=== PATIENT | male | born 1955 | race Caucasian/White ===

== ENCOUNTER 2019-04-09 04:33 | Inpatient (IN) | payer MEDICARE, OTHER, MEDICAID ==
[2019-04-09 04:54] LABS: URINE BLOOD (Dip) POC 3+ (NEGATIVE); URINE GLUCOSE (Dip) POC Negative (NEGATIVE); URINE KETONES (Dip) POC Trace (NEGATIVE); URINE LEUKOCYTE EST (Dip) POC Negative (NEGATIVE); URINE NITRITE (Dip) POC Negative (NEGATIVE); URINE TOTAL PROTEIN POC 1+ (NEGATIVE)
[2019-04-09 05:09] LABS: ADD MAN DIFF? NO
[2019-04-09] MEDS: SODIUM CHLORIDE 0.9% 1L BAG IV* (05:09)
[2019-04-09 05:13] LABS: ABNORMAL IP MESSAGE 1; BASOPHIL # 0.1 10^3/ul (0.0-0.1); BASOPHILS % 0.3 % (0.0-2.0); HEMATOCRIT 45.2 % (42.0-52.0); HEMOGLOBIN 15.7 g/dl (14.0-18.0); LYMPHOCYTES # 1.8 10^3/ul (0.8-2.9); MEAN CORPUSCULAR HEMOGLOBIN 32.5 pg (29.0-33.0); MEAN CORPUSCULAR HGB CONC 34.7 g/dl (32.0-37.0); MEAN CORPUSCULAR VOLUME 93.6 fl (82.0-101.0); MONOCYTE # 2.8 10^3/ul (0.3-0.9); MONOCYTES % 12.7 % (0.0-11.0); NEUTROPHIL # 17.1 10^3/ul (1.6-7.5); NEUTROPHILS % 78.1 % (39.0-77.0); PLATELET COUNT 155 10^3/UL (140-415); POSITIVE DIFF @See below; RED BLOOD COUNT 4.83 10^6/ul (4.70-6.10); RED CELL DISTRIBUTION WIDTH 12.6 % (11.5-14.5)
[2019-04-09 05:13] LABS: WHITE BLOOD COUNT 21.8 10^3/ul (4.8-10.8)
[2019-04-09] MEDS: PIPER-TAZO 3.375 GM IV (PMX) 100 ML IVPB (05:13)
[2019-04-09 05:28] LABS: ALANINE AMINOTRANSFERASE 37 IU/L (13-69); ALBUMIN 5.7 g/dl (3.3-4.9); ALBUMIN/GLOBULIN RATIO 1.78; ALKALINE PHOSPHATASE 69 IU/L (42-121); ANION GAP 28 (5-13); ASPARTATE AMINO TRANSFERASE 115 IU/L (15-46); BILIRUBIN,INDIRECT 0.9 mg/dl (0-1.1); BILIRUBIN,TOTAL 0.9 mg/dl (0.2-1.3); BLOOD UREA NITROGEN 72 mg/dl (7-20); CALCIUM 10.3 mg/dl (8.4-10.2); CARBON DIOXIDE 12 mmol/L (21-31); CHLORIDE 104 mmol/L (97-110); CREATININE 4.86 mg/dl (0.61-1.24); Estimated GFR 12 mL/min (>60); GLUCOSE 99 mg/dl (70-220); POTASSIUM 5.1 mmol/L (3.5-5.1); SODIUM 144 mmol/L (135-144); TOTAL PROTEIN 8.9 g/dl (6.1-8.1)
[2019-04-09 05:29] LABS: ACETAMINOPHEN < 10.0 ug/ml (10.0-30.0); ETHANOL < 10.0 mg/dl (0-0); SALICYLATE < 1.0 mg/dl (5.0-30.0)
[2019-04-09 05:30] LABS: ADD UMIC YES; UR ASCORBIC ACID NEGATIVE (NEGATIVE); UR BILIRUBIN (Dip) NEGATIVE (NEGATIVE); UR BLOOD (Dip) 3+ mg/dL (NEGATIVE); UR CLARITY CLOUDY (CLEAR); UR COLOR AMBER (YELLOW); UR GLUCOSE (Dip) NEGATIVE (NEGATIVE); UR HYALINE CAST FEW /HPF (NONE SEEN); UR KETONES (Dip) TRACE mg/dL (NEGATIVE); UR LEUKOCYTE ESTERASE (Dip) NEGATIVE Leu/ul (NEGATIVE); UR MUCUS FEW /HPF (NONE SEEN); UR NITRITE (Dip) NEGATIVE (NEGATIVE); UR RBC > 182 /HPF (0-5); UR SPECIFIC GRAVITY (Dip) 1.023 (1.003-1.030); UR TOTAL PROTEIN (Dip) 1+ mg/dl (NEGATIVE); UR UROBILINOGEN (Dip) 1+ mg/dL (NEGATIVE); UR WBC 4 /HPF (0-5)
[2019-04-09 05:38] LABS: TROPONIN-I 0.023 ng/ml (0.000-0.120)
[2019-04-09 05:49] LABS: PARTIAL THROMBOPLASTIN TIME 24.2 Sec (23.0-35.0); PROTIME 14.3 Sec (11.9-14.9); PT RATIO 1.1
[2019-04-09 05:52] LABS: AMPHETAMINE/METHAMPHETAMINE POSITIVE (NEGATIVE); BARBITURATES NEGATIVE (NEGATIVE); BENZODIAZEPINES NEGATIVE (NEGATIVE); CANNABINOIDS NEGATIVE (NEGATIVE); COCAINE NEGATIVE (NEGATIVE); OPIATES NEGATIVE (NEGATIVE)
[2019-04-09] MEDS: VANCOMYCIN 1 GM (PMX) 250 ML IVPB (05:57)
[2019-04-09] MEDS: ACETAMINOPHEN 650 MG SUPP PR (05:57)
[2019-04-09 06:18] LABS: CREATINE KINASE 4709 IU/L (23-200)
[2019-04-09] MEDS: LORAZEPAM 2 MG INJ IV ×4 (07:18→17:14)
[2019-04-09 07:40] LABS: LACTIC ACID 1.4 mmol/L (0.5-2.0)
[2019-04-09] MEDS ORDERED: LORAZEPAM 2 MG INJ IV (11:00)
[2019-04-09 11:28] LABS: LACTIC ACID 1.4 mmol/L (0.5-2.0)
[2019-04-09] MEDS: FAMOTIDINE 20 MG INJ IV (11:31)
[2019-04-09] MEDS: SOD CHLORIDE 0.9% 1,000 ML IV ×2 (11:32→17:30)
[2019-04-09] MEDS: CEFTRIAXONE 1 GM/50 ML (PMX) 50 ML IVPB (14:00)
[2019-04-09] MEDS ORDERED: ONDANSETRON 4 MG INJ IV (14:00)
[2019-04-09] MEDS ORDERED: VANCOMYCIN IV PER PHARMACY XX (14:00)
[2019-04-09] MEDS ORDERED: GLUCOSE GEL 15 GRAM TUBE PO ×2 (14:30)
[2019-04-09] MEDS ORDERED: GLUCAGON 1 MG INJ IM (14:30)
[2019-04-09] MEDS ORDERED: GLUCOSE GEL 15 GRAM TUBE BUCCAL (14:30)
[2019-04-09] MEDS ORDERED: CEFTRIAXONE 1 GM/50 ML (PMX) 50 ML IVPB (14:30)
[2019-04-09] MEDS ORDERED: DEXTROSE 50% 50 ML SYRINGE IV ×2 (14:30)
[2019-04-09 15:37] LABS: ANION GAP 12 (5-13); BLOOD UREA NITROGEN 73 mg/dl (7-20); CALCIUM 8.7 mg/dl (8.4-10.2); CARBON DIOXIDE 23 mmol/L (21-31); CHLORIDE 110 mmol/L (97-110); CREATININE 2.64 mg/dl (0.61-1.24); Estimated GFR 24 mL/min (>60); GLUCOSE 118 mg/dl (70-220); POTASSIUM 4.5 mmol/L (3.5-5.1); SODIUM 145 mmol/L (135-144)
[2019-04-09 15:39] LABS: AMMONIA 16 umol/l (9-30)
[2019-04-09 15:47] LABS: TROPONIN-I < 0.012 ng/ml (0.000-0.120)
[2019-04-09] MEDS: INSULIN ASPART [NOVOLOG] 3 ML PEN SC ×3 (16:53→20:53)
[2019-04-09] MEDS: SOD CHLORIDE 0.9% 500 ML IV (17:30)
[2019-04-09] MEDS: HALOPERIDOL 5 MG INJ IM (18:46)
[2019-04-09] MEDS: CEFTRIAXONE 2 GM/50 ML (PMX) 50 ML IVPB (20:15)
[2019-04-09] MEDS: HEPARIN 5,000 UNIT/1 ML VIAL SC (20:57)
[2019-04-09] MEDS: VANCOMYCIN 750 MG (PMX) 250 ML IVPB (21:16)
[2019-04-09 22:23] LABS: Allen Test ACCEPTAB; Arterial Blood Gas Oxygen Sat 96.4 mmHG (95.0-98.0); Arterial COHb 0.2 % (0.0-3.0); Arterial Fraction of Oxyhgb 95.8 % (93.0-99.0); Arterial HCO3 19.2 mmol/L (22.0-26.0); Arterial MetHb 0.4 % (0.0-1.5); Arterial pCO2 45.3 mmhg (35-45); MODE NASAL CANNULA; Site Right Radial
[2019-04-10] MEDS: LORAZEPAM 2 MG INJ IV ×2 (00:14→06:58)
[2019-04-10] MEDS: INSULIN ASPART [NOVOLOG] 3 ML PEN SC ×6 (00:59→20:10)
[2019-04-10 01:38] LABS: AADO2 Arterial 71.6 mmHg (7.0-24.0); Allen Test ACCEPTAB; Arterial Base Excess -7.7 mmol/L (-3.0-3); Arterial COHb 0 % (0.0-3.0); Arterial Fraction of Oxyhgb 97.7 % (93.0-99.0); Arterial HCO3 18.2 mmol/L (22.0-26.0); Arterial MetHb 0.3 % (0.0-1.5); Arterial pCO2 38.6 mmhg (35-45); Blood Gas IEPAP 18/8; MODE MASK - BIPAP; Site Right Radial
[2019-04-10] MEDS: CEFTRIAXONE 2 GM/50 ML (PMX) 50 ML IVPB ×2 (02:44→15:02)
[2019-04-10] MEDS: SODIUM BICARBONATE (IV ADD) 50 MEQ in SOD CHLORIDE 0.45% 950 ML IV ×4 (02:45→20:11)
[2019-04-10 05:05] LABS: ADD MAN DIFF? NO
[2019-04-10 05:10] LABS: WHITE BLOOD COUNT 9.7 10^3/ul (4.8-10.8)
[2019-04-10 05:10] LABS: ABNORMAL IP MESSAGE 1; BASOPHILS % 0.1 % (0.0-2.0); HEMATOCRIT 36.3 % (42.0-52.0); HEMOGLOBIN 12.1 g/dl (14.0-18.0); LYMPHOCYTES # 0.9 10^3/ul (0.8-2.9); LYMPHOCYTES % 9.5 % (15.0-51.0); MEAN CORPUSCULAR HEMOGLOBIN 32.4 pg (29.0-33.0); MEAN CORPUSCULAR HGB CONC 33.3 g/dl (32.0-37.0); MEAN CORPUSCULAR VOLUME 97.1 fl (82.0-101.0); MEAN PLATELET VOLUME 9.6 fl (7.4-10.4); MONOCYTE # 1.1 10^3/ul (0.3-0.9); MONOCYTES % 11.3 % (0.0-11.0); NEUTROPHIL # 7.6 10^3/ul (1.6-7.5); NEUTROPHILS % 78.6 % (39.0-77.0); PLATELET COUNT 93 10^3/UL (140-415); POSITIVE DIFF @See below; RED BLOOD COUNT 3.74 10^6/ul (4.70-6.10); RED CELL DISTRIBUTION WIDTH 13.3 % (11.5-14.5)
[2019-04-10 05:19] LABS: HEMOGLOBIN A1C 4.9 % (0-5.9)
[2019-04-10 05:32] LABS: ANION GAP 10 (5-13); BLOOD UREA NITROGEN 64 mg/dl (7-20); CALCIUM 8.6 mg/dl (8.4-10.2); CARBON DIOXIDE 22 mmol/L (21-31); CHLORIDE 115 mmol/L (97-110); CREATININE 1.36 mg/dl (0.61-1.24); Estimated GFR 53 mL/min (>60); GLUCOSE 132 mg/dl (70-220); POTASSIUM 4.4 mmol/L (3.5-5.1); SODIUM 147 mmol/L (135-144)
[2019-04-10 07:48] LABS: Allen Test ACCEPTAB; Arterial Base Excess -4.1 mmol/L (-3.0-3); Arterial Blood Gas Oxygen Sat 97.6 mmHG (95.0-98.0); Arterial COHb 0.3 % (0.0-3.0); Arterial Fraction of Oxyhgb 96.9 % (93.0-99.0); Arterial HCO3 20.6 mmol/L (22.0-26.0); Arterial MetHb 0.4 % (0.0-1.5); Arterial pCO2 36.3 mmhg (35-45); MODE NASAL CANNULA; Site Right Radial
[2019-04-10] MEDS ORDERED: PANTOPRAZOLE 40 MG INJ IV (09:00)
[2019-04-10] MEDS: FAMOTIDINE 20 MG INJ IV (09:14)
[2019-04-10] MEDS: HEPARIN 5,000 UNIT/1 ML VIAL SC (09:16)
[2019-04-10] MEDS: VANCOMYCIN 750 MG (PMX) 250 ML IVPB ×2 (11:50→22:02)
[2019-04-10] MEDS ORDERED: LORAZEPAM 2 MG INJ IV (15:30)
[2019-04-11] MEDS: INSULIN ASPART [NOVOLOG] 3 ML PEN SC ×3 (00:44→08:38)
[2019-04-11] MEDS: CEFTRIAXONE 2 GM/50 ML (PMX) 50 ML IVPB ×2 (02:34→19:28)
[2019-04-11] MEDS: SODIUM BICARBONATE (IV ADD) 50 MEQ in SOD CHLORIDE 0.45% 950 ML IV ×2 (04:31→23:20)
[2019-04-11 06:07] LABS: ADD MAN DIFF? NO
[2019-04-11 06:16] LABS: ABNORMAL IP MESSAGE 1; BASOPHILS % 0.2 % (0.0-2.0); EOSINOPHILS % 0.9 % (0.0-7.0); HEMOGLOBIN 11.2 g/dl (14.0-18.0); LYMPHOCYTES # 0.9 10^3/ul (0.8-2.9); LYMPHOCYTES % 18.9 % (15.0-51.0); MEAN CORPUSCULAR HEMOGLOBIN 32.8 pg (29.0-33.0); MEAN CORPUSCULAR HGB CONC 32.9 g/dl (32.0-37.0); MEAN CORPUSCULAR VOLUME 99.7 fl (82.0-101.0); MEAN PLATELET VOLUME 9.8 fl (7.4-10.4); MONOCYTE # 0.5 10^3/ul (0.3-0.9); MONOCYTES % 10.4 % (0.0-11.0); NEUTROPHIL # 3.2 10^3/ul (1.6-7.5); NEUTROPHILS % 69.4 % (39.0-77.0); PLATELET COUNT 89 10^3/UL (140-415); POSITIVE DIFF @See below; RED BLOOD COUNT 3.41 10^6/ul (4.70-6.10); RED CELL DISTRIBUTION WIDTH 13.2 % (11.5-14.5)
[2019-04-11 06:16] LABS: WHITE BLOOD COUNT 4.5 10^3/ul (4.8-10.8)
[2019-04-11 06:35] LABS: ANION GAP 4 (5-13); BLOOD UREA NITROGEN 33 mg/dl (7-20); CALCIUM 8.6 mg/dl (8.4-10.2); CARBON DIOXIDE 30 mmol/L (21-31); CHLORIDE 112 mmol/L (97-110); CREATININE 0.76 mg/dl (0.61-1.24); Estimated GFR > 60 mL/min (>60); GLUCOSE 95 mg/dl (70-220); MAGNESIUM 2.4 mg/dl (1.7-2.5); PHOSPHORUS 1.3 mg/dl (2.5-4.9); POTASSIUM 3.8 mmol/L (3.5-5.1); SODIUM 146 mmol/L (135-144)
[2019-04-11] MEDS: FAMOTIDINE 20 MG INJ IV (08:37)
[2019-04-11] MEDS ORDERED: ENOXAPARIN 40 MG/0.4 ML SYG SC (11:00)
[2019-04-11 11:09] LABS: VANCOMYCIN,TROUGH 7.8 ug/ml (10.0-20.0)
[2019-04-11] MEDS: VANCOMYCIN 750 MG (PMX) 250 ML IVPB (11:22)
[2019-04-11] MEDS: POTASSIUM PHOSPHATE 20 MEQ in SOD CHLORIDE 0.9% 250 ML IVPB (12:43)
[2019-04-11 13:18] LABS: HIV 1&2 ANTIBODY NEGATIVE (NEGATIVE)
[2019-04-11] MEDS: DIVALPROEX (EC) 250 MG TAB PO ×2 (19:28→21:04)
[2019-04-11] MEDS: FAMOTIDINE 20 MG TAB PO (21:04)
[2019-04-11] MEDS: traMADol 50 MG TAB PO (21:04)
[2019-04-11] MEDS: ESCITALOPRAM 10 MG TAB PO (21:04)
[2019-04-11] MEDS: VANCOMYCIN 1.25 GM/NS 250 ML 250 ML IVPB (23:23)
[2019-04-12] MEDS: CEFTRIAXONE 2 GM/50 ML (PMX) 50 ML IVPB (02:25)
[2019-04-12 05:44] LABS: ADD MAN DIFF? NO
[2019-04-12 05:52] LABS: WHITE BLOOD COUNT 5.2 10^3/ul (4.8-10.8)
[2019-04-12 05:52] LABS: BASOPHILS % 0.6 % (0.0-2.0); EOSINOPHILS # 0.1 10^3/ul (0.0-0.5); EOSINOPHILS % 2.3 % (0.0-7.0); HEMATOCRIT 35.1 % (42.0-52.0); HEMOGLOBIN 11.7 g/dl (14.0-18.0); LYMPHOCYTES # 1.3 10^3/ul (0.8-2.9); LYMPHOCYTES % 25.3 % (15.0-51.0); MEAN CORPUSCULAR HEMOGLOBIN 32.4 pg (29.0-33.0); MEAN CORPUSCULAR HGB CONC 33.3 g/dl (32.0-37.0); MEAN CORPUSCULAR VOLUME 97.2 fl (82.0-101.0); MEAN PLATELET VOLUME 10.4 fl (7.4-10.4); MONOCYTE # 0.7 10^3/ul (0.3-0.9); MONOCYTES % 12.5 % (0.0-11.0); NEUTROPHIL # 3.1 10^3/ul (1.6-7.5); NEUTROPHILS % 58.9 % (39.0-77.0); PLATELET COUNT 114 10^3/UL (140-415); RED BLOOD COUNT 3.61 10^6/ul (4.70-6.10); RED CELL DISTRIBUTION WIDTH 12.8 % (11.5-14.5)
[2019-04-12 06:20] LABS: ANION GAP 5 (5-13); BLOOD UREA NITROGEN 21 mg/dl (7-20); CALCIUM 9.1 mg/dl (8.4-10.2); CARBON DIOXIDE 28 mmol/L (21-31); CHLORIDE 108 mmol/L (97-110); CREATININE 0.73 mg/dl (0.61-1.24); Estimated GFR > 60 mL/min (>60); GLUCOSE 106 mg/dl (70-220); POTASSIUM 3.6 mmol/L (3.5-5.1); SODIUM 141 mmol/L (135-144)
[2019-04-12] MEDS: FAMOTIDINE 20 MG TAB PO ×2 (10:29→21:09)
[2019-04-12] MEDS: DIVALPROEX (EC) 250 MG TAB PO ×3 (10:29→21:09)
[2019-04-12] MEDS: ESCITALOPRAM 10 MG TAB PO ×2 (10:29→21:09)
[2019-04-12] MEDS: VANCOMYCIN 1.25 GM/NS 250 ML 250 ML IVPB (11:29)
[2019-04-12] MEDS: traMADol 50 MG TAB PO (15:04)
[2019-04-13 05:41] LABS: ADD MAN DIFF? NO
[2019-04-13 05:48] LABS: BASOPHILS % 0.7 % (0.0-2.0); EOSINOPHILS # 0.3 10^3/ul (0.0-0.5); EOSINOPHILS % 5.7 % (0.0-7.0); HEMATOCRIT 34.8 % (42.0-52.0); HEMOGLOBIN 11.6 g/dl (14.0-18.0); LYMPHOCYTES # 1.4 10^3/ul (0.8-2.9); LYMPHOCYTES % 31.7 % (15.0-51.0); MEAN CORPUSCULAR HGB CONC 33.3 g/dl (32.0-37.0); MEAN CORPUSCULAR VOLUME 95.9 fl (82.0-101.0); MEAN PLATELET VOLUME 9.8 fl (7.4-10.4); MONOCYTE # 0.7 10^3/ul (0.3-0.9); MONOCYTES % 15.6 % (0.0-11.0); NEUTROPHILS % 46.1 % (39.0-77.0); PLATELET COUNT 132 10^3/UL (140-415); RED BLOOD COUNT 3.63 10^6/ul (4.70-6.10); RED CELL DISTRIBUTION WIDTH 12.8 % (11.5-14.5)
[2019-04-13 05:48] LABS: WHITE BLOOD COUNT 4.4 10^3/ul (4.8-10.8)
[2019-04-13 06:42] LABS: ANION GAP 3 (5-13); BLOOD UREA NITROGEN 16 mg/dl (7-20); CALCIUM 9.2 mg/dl (8.4-10.2); CARBON DIOXIDE 30 mmol/L (21-31); CHLORIDE 107 mmol/L (97-110); CREATININE 0.71 mg/dl (0.61-1.24); Estimated GFR > 60 mL/min (>60); GLUCOSE 104 mg/dl (70-220); POTASSIUM 3.5 mmol/L (3.5-5.1); SODIUM 140 mmol/L (135-144)
[2019-04-13 07:00] LABS: MAGNESIUM 1.9 mg/dl (1.7-2.5)
[2019-04-13 07:00] LABS: PHOSPHORUS 2.2 mg/dl (2.5-4.9)
[2019-04-13] MEDS: ESCITALOPRAM 10 MG TAB PO (08:13)
[2019-04-13] MEDS: FAMOTIDINE 20 MG TAB PO (08:13)
[2019-04-13] MEDS: DIVALPROEX (EC) 250 MG TAB PO ×2 (08:13→12:27)
[2019-04-13] MEDS: SOD PHOS MONO/DIBAS 250 MG TAB PO (12:27)
[2019-04-13] MEDS: traMADol 50 MG TAB PO (13:29)
[2019-04-13 15:07] LABS: CREATINE KINASE 94 IU/L (23-200)
== END 2019-04-13 16:29 | disposition home or self-care (01) | DRG 871 ==
LOC: PP2 04-12 14:35 → E/R 04:33 → ICU 06:09
PROC: 0T9B70Z Drainage of Bladder with Drainage Device, Via Natural or Artificial Opening (ICD-10-PCS; 2019-04-09)
PROC: 4A133R1 Monitoring of Arterial Saturation, Peripheral, Percutaneous Approach (ICD-10-PCS; 2019-04-09)
PROC: 5A09357 Assistance with Respiratory Ventilation, Less than 24 Consecutive Hours, Continuous Positive Airway Pressure (ICD-10-PCS; principal; 2019-04-10)
DX: A41.9 Sepsis, unspecified organism (principal); G92 Toxic encephalopathy; J96.01 Acute respiratory failure with hypoxia; J96.02 Acute respiratory failure with hypercapnia; N17.9 Acute kidney failure, unspecified; E87.2 Acidosis; N39.0 Urinary tract infection, site not specified; E87.0 Hyperosmolality and hypernatremia; F31.9 Bipolar disorder, unspecified; N18.9 Chronic kidney disease, unspecified; F15.10 Other stimulant abuse, uncomplicated; R33.9 Retention of urine, unspecified; F19.10 Other psychoactive substance abuse, uncomplicated; D69.6 Thrombocytopenia, unspecified; E66.9 Obesity, unspecified
CPT/HCPCS: 36415; 36600; 70450; 71045; 76775; 80048; 80053; 80202; 80307; 81001; 81003; 82140; 82550; 82803; 82962; 83036; 83605; 83735; 84100; 84484; 85025; 85610; 85730; 86703; 87040-91; 87081; 87086; 93005; 94660; 95819; 96365; 97161; 99285-25